=== PATIENT | female | born 1945 | race Caucasian/White ===

== ENCOUNTER → 2018-04-14 | Outpatient (CLI) | payer OTHER, MEDICARE ==
[2018-04-16 15:09] LABS: HPV 16 Negative (Negative); HPV 18 Negative (Negative); HPV OTHER HR TYPES Negative (Negative)
== END | disposition home or self-care (01) ==
LOC: LAB 17:15 → LAB SHORT 17:15
PROVIDERS: Nurse Practitioner Women's Health
DX: Z12.4 Encounter for screening for malignant neoplasm of cervix (principal); Z91.89 Other specified personal risk factors, not elsewhere classified
CPT/HCPCS: 87624; G0123

== ENCOUNTER 2018-09-25 09:00 | Day surgery (SDC) | payer OTHER, MEDICARE ==
[~2018-09-25] VITALS: Ht 160 cm; Wt 57.5 kg
[~2018-09-25 09:00] MED LIST: Estrace Vagin42.5 GM VAG; IBUP600 PO; LEVSOD50 PO; LOSARTAN-HCTZ1 EAC1 PO; ONE DAILY COMP1 EACH PO; POTCHL10ER PO; Phentermine HCl30 MG PO; VITAMIN D32000 UNIT PO
--- NOTE | 2018-09-25 10:51 | NUR ---
09/25/18 1051 Anastasiya Teresa GROUNDING PAD ON RIGHT FLANK--NO PROBLEMS
--- NOTE | 2018-09-25 11:29 | NUR ---
09/25/18 Joe9 Anastasiya Teresa AFTER PROCEDURE, WHEN OFFERING PATIENT SOMETHING TO DRINK SHE TOLD ME HER NAUSEA HAD COMPLETELY RESOLVED AT THIS TIME
== END 2018-09-25 11:27 | disposition home or self-care (01) ==
LOC: ORSCSDS 09:00
PROVIDERS: Surgery
PROC: 0DBN8ZX Excision of Sigmoid Colon, Via Natural or Artificial Opening Endoscopic, Diagnostic (ICD-10-PCS; principal; 2018-09-25 10:30)
DX: Z12.11 Encounter for screening for malignant neoplasm of colon (principal); D12.5 Benign neoplasm of sigmoid colon; K57.30 Diverticulosis of large intestine without perforation or abscess without bleeding; I10 Essential (primary) hypertension; Z79.899 Other long term (current) drug therapy
CPT/HCPCS: 88305; J2405; J7120

== ENCOUNTER 2024-11-05 08:57 | Day surgery (SDC) | payer BC, MEDICARE ==
[~2024-11-05] VITALS: Ht 157.5 cm; Wt 59.2 kg
[~2024-11-05 08:57] MED LIST changes: +Atropine Sulfate 0.1 MG/ML 10ML SYR ONE; +Glycopyrrolate 0.2 MG/ML 1MLVIAL ONE; +Lactated Ringer's 1,000 ML IV ONE; +Lidocaine 2% 5 ML SDV ONE; +Lidocaine HCl/Pf 1% 5 ML VIAL ONE; +Ondansetron HCl 2 MG / ML 2ML Vial ONE; +ePHEDrine Sulfate 50 MG/ML 1ML Injection ONE; +propofoL 40 ML IV ONE
[2024-11-05] MEDS ORDERED: B-COMPLEX1 EACH (10:18)
[2024-11-05] MEDS ORDERED: Lactated Ringer's 1,000 ML IV ONE (10:41)
[2024-11-05 11:55] VITALS: BP 138/90
== END 2024-11-05 11:50 | disposition home or self-care (01) ==
LOC: ORSCSDS 08:57
PROVIDERS: Surgery
PROC: 0DBL8ZX Excision of Transverse Colon, Via Natural or Artificial Opening Endoscopic, Diagnostic (ICD-10-PCS; principal; 2024-11-05 10:30)
DX: Z12.11 Encounter for screening for malignant neoplasm of colon (principal); D12.3 Benign neoplasm of transverse colon; K57.30 Diverticulosis of large intestine without perforation or abscess without bleeding; Z86.0101 Personal history of adenomatous and serrated colon polyps; I10 Essential (primary) hypertension; E07.9 Disorder of thyroid, unspecified; Z79.899 Other long term (current) drug therapy; F17.210 Nicotine dependence, cigarettes, uncomplicated
CPT/HCPCS: 88305; J0461; J2003; J2405; J2704; J7120